=== PATIENT | male | born 1955 | race Caucasian/White ===

== ENCOUNTER → 2017-12-15 | Outpatient (CLI) | payer OTHER | LOC: LAB SHORT 07:27 → PLD 07:27 | DX: D48.5 Neoplasm of uncertain behavior of skin (principal) | CPT/HCPCS: 88305 ==

== ENCOUNTER 2022-02-10 21:52 | Emergency (ER) | payer OTHER ==
[~2022-02-10] VITALS: Ht 180.3 cm; Wt 99.8 kg
[2022-02-10] MEDS ORDERED: GABAPENTIN600 MG PO (22:53)
[2022-02-10] MEDS ORDERED: FUROSEMIDE20 MG PO (22:53)
[2022-02-10] MEDS ORDERED: ATOR40TA PO (22:53)
[2022-02-10] MEDS ORDERED: BASAGLAR K100 UNIT/8 SC (22:54)
[2022-02-10 23:17] LABS: BASOPHILS ABSOLUTE AUTO 0.05 K/mm3 (0.00-0.23); BASOPHILS PERCENT AUTO 0 % (0-2); EOSINOPHILS PERCENT AUTO 0 % (0-6); Hematocrit 50.5 % (37.0-53.0); IMMATURE GRAN ABSOLUTE AUTO 0.09 K/mm3 (0.00-0.10); IMMATURE GRAN PERCENT AUTO 1 % (0-1); LYMPHOCYTES ABSOLUTE AUTO 1.54 K/mm3 (0.84-5.20); LYMPHOCYTES PERCENT AUTO 10 % (21-46); MONOCYTES ABSOLUTE AUTO 0.99 K/mm3 (0.16-1.47); MONOCYTES PERCENT AUTO 6 % (4-13); Mean Corpuscular HGB 30.7 pg (26.0-34.0); Mean Corpuscular HGB Conc 33.7 g/dL (31.5-36.5); Mean Corpuscular Volume 91 fL (80-100); Mean Platelet Volume 10.2 fL (9.1-12.4); NEUTROPHILS ABSOLUTE AUTO 13.13 K/mm3 (1.96-9.15); NEUTROPHILS PERCENT AUTO 83 % (41-73); Platelet Count 404 K/mm3 (150-400); RDW Coefficient Variation 12.3 % (11.7-14.2); RDW Standard Deviation 41.9 fL (35.1-46.3); Red Blood Cell Count 5.53 M/mm3 (4.30-5.90)
[2022-02-10 23:34] LABS: Bun/Creatinine Ratio 33.6 (12.0-20.0); Creatinine, Blood 0.92 mg/dL (0.60-1.20); Potassium, Blood 3.8 mmol/L (3.5-5.5)
[2022-02-10 23:35] LABS: Albumin, Blood 3.2 g/dL (3.4-5.0); Albumin/Globulin Ratio 0.7 (0.8-1.8); Bilirubin, Total 0.5 mg/dL (0.1-1.0); Calcium, Blood 9.2 mg/dL (8.5-10.1); Globulin, Blood 4.6 g/dL (2.2-4.0); Total Protein, Blood 7.8 g/dL (6.4-8.2)
== END 2022-02-11 02:07 | disposition home or self-care (01) ==
LOC: ER 21:52
PROVIDERS: Physician Assistant
DX: S32.019A Unspecified fracture of first lumbar vertebra, initial encounter for closed fracture (principal); S32.029A Unspecified fracture of second lumbar vertebra, initial encounter for closed fracture; S20.211A Contusion of right front wall of thorax, initial encounter; W23.0XXA Caught, crushed, jammed, or pinched between moving objects, initial encounter; E11.9 Type 2 diabetes mellitus without complications; I10 Essential (primary) hypertension; D72.829 Elevated white blood cell count, unspecified
CPT/HCPCS: 36415; 71101; 71260; 74177; 80053; 83690; 85025; 93005; 93010; A9270; J7030; Q9967

== ENCOUNTER → 2023-02-25 | Outpatient (CLI) | payer MEDICARE, OTHER ==
[~2023-02-25] MED LIST: ATOR40TA PO; BASAGLAR K100 UNIT/8 SC; FUROSEMIDE20 MG PO; GABAPENTIN600 MG PO
== END | disposition home or self-care (01) ==
LOC: LAB SHORT 15:50 → PLD 15:50
DX: C44.311 Basal cell carcinoma of skin of nose (principal)
CPT/HCPCS: 88305

== ENCOUNTER 2023-05-20 15:08 | Inpatient (IN) | payer MEDICARE, OTHER ==
[~2023-05-20] VITALS: Ht 177.8 cm; Wt 84.2 kg
[2023-05-20] MEDS ORDERED: JARDIANCE10 MG PO (15:26)
[2023-05-20] MEDS ORDERED: PREGABALIN50 MG PO (15:26)
[2023-05-20] MEDS ORDERED: ATORVASTATIN CA20 MG PO (15:26)
[2023-05-20] MEDS ORDERED: METFORMIN HCL500 M2 PO (15:26)
[2023-05-20] MEDS ORDERED: LISI20 PO (15:26)
[2023-05-20] MEDS ORDERED: AMOCLA875 PO (16:09)
[2023-05-20 16:19] LABS: BASOPHILS ABSOLUTE AUTO 0.16 K/mm3 (0.00-0.23); BASOPHILS PERCENT AUTO 1 % (0-2); EOSINOPHILS ABSOLUTE AUTO 0.08 K/mm3 (0.00-0.68); EOSINOPHILS PERCENT AUTO 0 % (0-6); Hematocrit 49.2 % (37.0-53.0); IMMATURE GRAN ABSOLUTE AUTO 0.89 K/mm3 (0.00-0.10); IMMATURE GRAN PERCENT AUTO 3 % (0-1); LYMPHOCYTES ABSOLUTE AUTO 1.88 K/mm3 (0.84-5.20); LYMPHOCYTES PERCENT AUTO 5 % (21-46); MONOCYTES PERCENT AUTO 7 % (4-13); Mean Corpuscular HGB 31.4 pg (26.0-34.0); Mean Corpuscular HGB Conc 34.6 g/dL (31.5-36.5); Mean Corpuscular Volume 91 fL (80-100); Mean Platelet Volume 11.1 fL (9.1-12.4); NEUTROPHILS ABSOLUTE AUTO 29.41 K/mm3 (1.96-9.15); NEUTROPHILS PERCENT AUTO 84 % (41-73); Platelet Count 388 K/mm3 (150-400); RDW Coefficient Variation 11.9 % (11.7-14.2); RDW Standard Deviation 39.7 fL (35.1-46.3); Red Blood Cell Count 5.42 M/mm3 (4.30-5.90); White Blood Cell Count 35.02 K/mm3 (4.00-11.30)
[2023-05-20 17:10] LABS: Albumin, Blood 2.9 g/dL (3.4-5.0); Albumin/Globulin Ratio 0.6 (0.8-1.8); Bilirubin, Total 0.5 mg/dL (0.1-1.0); Bun/Creatinine Ratio 14.9 (12.0-20.0); Calcium, Blood 9.2 mg/dL (8.5-10.1); Creatinine, Blood 0.94 mg/dL (0.60-1.20); Globulin, Blood 4.5 g/dL (2.2-4.0); Total Protein, Blood 7.4 g/dL (6.4-8.2)
[2023-05-20 18:56] LABS: Magnesium, Blood 1.9 mg/dL (1.6-2.4)
[2023-05-20 18:57] LABS: Alanine Aminotransfer (ALT/SGP 19 U/L (12-78); Albumin, Blood 2.7 g/dL (3.4-5.0); Albumin/Globulin Ratio 0.6 (0.8-1.8); Alk Phos 101 U/L (50-136); Anion Gap 6 mmol/L (6-16); Aspartate Aminotrans (AST/SGOT 33 U/L (12-37); Bilirubin, Direct <0.1 mg/dL (0.0-0.3); Bilirubin, Indirect Unable to Calculate mg/dL (0.1-0.7); Bilirubin, Total 0.6 mg/dL (0.1-1.0); Blood Urea Nitrogen 14 mg/dL (8-24); Bun/Creatinine Ratio 17.2 (12.0-20.0); CO2, Blood 25 mmol/L (21-32); Calcium, Blood 8.8 mg/dL (8.5-10.1); Chloride, Blood 104 mmol/L (98-108); Creatinine, Blood 0.82 mg/dL (0.60-1.20); Globulin, Blood 4.3 g/dL (2.2-4.0); Glomerular Filtration Rate 97 (60-); Glucose, Blood 373 mg/dL (70-99); Phosphorus, Blood 3.4 mg/dL (2.5-4.9); Potassium, Blood 5.4 mmol/L (3.5-5.5); Sodium, Blood 135 mmol/L (136-145)
[2023-05-20 21:37] LABS: Source, Urine Clean Catch
[2023-05-20 21:43] LABS: Bilirubin, Urine Neg (Neg); Blood, Urine 1+ (Neg); Glucose Qualitative, Urine 4+ (Neg); Ketones, Urine 2+ (Neg); Leukocyte Esterase, Urine Neg (Neg); Nitrite, Urine Neg (Neg); Protein, Urine 1+ (Neg); Specific Gravity, Urine 1.015 (1.003-1.022); Urobilinogen, Urine NORM (Normal)
[2023-05-20 22:02] LABS: Appearance, Urine Clear (Clear); Color, Urine Yellow (P-Yellow)
[2023-05-20 22:03] LABS: Bacteria Rare /hpf; Red Blood Cells, Urine 0-2 /hpf (0-2); Squamous Epithelial Cells Rare /hpf (Few); White Blood Cells, Urine 0-2 /hpf (0-5)
[2023-05-21] VITALS (9 sets, daily range): BP systolic 127–216; BP diastolic 67–190
--- NOTE | 2023-05-21 00:13 | NUR ---
PT ARRIVED ON MEDICA FLOOR FROM ED- PT PLACED ON TELE AT THE TIME OF ARRIVAL RUNNING AFIB IN THE 150'S. DENIES CP AND SOB, IVF STARTED
--- NOTE | 2023-05-21 00:52 | NUR ---
IV METOPROLOL PUSH COMPLETED- CALLED TELE HR AFIB 124 AFTER PUSH COMPLETED. PT WAS AGGITATED WITH STAFF, DENYING CP OR SOB AT THE TIME OF PUSH, AFTER PUSH PT APPEARED TO BE MORE RELAXED AND VERBILIZED HE WAS FEELING LESS IRRITATED WITH STAFF.
--- NOTE | 2023-05-21 01:54 | NUR ---
CALLED NIGHT HOSPITALIST- PT HR AFIB 130-140'S SUSTAINED AGAIN. DROPPED TO 110-120'S WITH IV METOPROLOL BUT IS BACK UP AGAIN, RECIEVED ORDER FOR 10 MG IV CARDIZEM PUSH. CALLED PHARMACY
--- NOTE | 2023-05-21 02:42 | NUR ---
HR ELEVATED- PT HR IS STARTING TO INCREASE AGAIN. INITIALLY AFTER THE CARDIZEM IV PUSH HR WAS IN THE 105-117 RANGE. STARTING TO TOUCH UP INTO THE HIGH 120'S. CALLED TELE AND ASKED THEM TO CALL IF HR SUSTAINS OVER 130'S. PT IN BED SLEEPING AT THIS TIME. PHOTOS TAKEN OF WOUNDS, PT TOO TIRED TO SIGN THE PHOTO DOCUMENTATION FORM, VERBALIZED OK TO PHOTOGRAPH.
--- NOTE | 2023-05-21 02:59 | NUR ---
TELE CALLED- PT HR HAD BEEN SUSTAINING IN THE 130'S AND CREEPING UP TO THE 140'S. THEN IT DROPPED OFF WITH NO INTERVENTION. HR NOW TRENDING IN THE 90'S TO LOW 100'S.
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
--- NOTE | 2023-05-21 04:17 | NUR ---
SHIFT SUMMARY- PT HAS HAD ELEVATED PRESSURES AND HR SINCE ADMIT UNTIL HR RETURNED TO NSR. DIASTOLIC BP ELEVATED. PT ADMITTED THROUGH THE ED FOR CELLULITIS. PT IS A 1PA TO THE BEDSIDE TO USE THE URINAL. PT ALERT AND ORIENTED TO SELF, POOR HISTORIAN. ADMISSION COMPLETED. PHOTOS OF WOUNDS IN THE CHART. PT IN BED CALL LIGHT IN REACH, NO S&S OF DISTRESS AT THIS ITME.
[2023-05-21 07:32] LABS: BASOPHILS ABSOLUTE AUTO 0.18 K/mm3 (0.00-0.23); BASOPHILS PERCENT AUTO 1 % (0-2); EOSINOPHILS PERCENT AUTO 0 % (0-6); Hematocrit 45.6 % (37.0-53.0); Hemoglobin 15.8 g/dL (13.5-17.5); IMMATURE GRAN PERCENT AUTO 4 % (0-1); LYMPHOCYTES ABSOLUTE AUTO 1.86 K/mm3 (0.84-5.20); LYMPHOCYTES PERCENT AUTO 5 % (21-46); MONOCYTES ABSOLUTE AUTO 1.57 K/mm3 (0.16-1.47); MONOCYTES PERCENT AUTO 4 % (4-13); Mean Corpuscular HGB 31.3 pg (26.0-34.0); Mean Corpuscular HGB Conc 34.6 g/dL (31.5-36.5); Mean Corpuscular Volume 90 fL (80-100); Mean Platelet Volume 10.3 fL (9.1-12.4); NEUTROPHILS PERCENT AUTO 86 % (41-73); Platelet Count 372 K/mm3 (150-400); RDW Coefficient Variation 11.9 % (11.7-14.2); RDW Standard Deviation 39.5 fL (35.1-46.3); Red Blood Cell Count 5.05 M/mm3 (4.30-5.90); White Blood Cell Count 35.81 K/mm3 (4.00-11.30)
[2023-05-21 08:02] LABS: Albumin, Blood 2.4 g/dL (3.4-5.0); Albumin/Globulin Ratio 0.6 (0.8-1.8); Bilirubin, Total 0.4 mg/dL (0.1-1.0); Bun/Creatinine Ratio 21.8 (12.0-20.0); Calcium, Blood 8.7 mg/dL (8.5-10.1); Creatinine, Blood 0.69 mg/dL (0.60-1.20); Globulin, Blood 4.3 g/dL (2.2-4.0); Potassium, Blood 4.4 mmol/L (3.5-5.5); Total Protein, Blood 6.7 g/dL (6.4-8.2)
--- NOTE | 2023-05-21 17:26 | NUR ---
DAYSHIFT SUMMARY Patient alert & oriented x3. 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 No cardiac events this shift, telemetry in place NSR @ 91. IV ABX administred for cellulitis. High blood sugars, MD ordered medium sliding scale insulin. Educated patient on insulin, diabetes, & diabetic diet, explained how drinking soda will spike blood suagr levels. Patient verbalized understanding, but said he wanted soda anyways. Vitals stable, will continue plan of care.
--- NOTE | 2023-05-21 21:04 | NUR ---
COMMISSION SALES ASSOCIATE NOTE NURSE NOTIFIED OF PT WALKING SELF TO BATHROOM AND AMBULATING FINE. WAS TOLD AT SHIFT REPORT THAT A BED ALARM WOULD BE NEEDED. NURSE DECIDED THAT A BED ALARM WAS NOT NEEDED AT THIS TIME AND BED ALARM WAS KEPT OFF.
--- NOTE | 2023-05-21 22:09 | NUR ---
CALLED NIGHT HOSPITALIST. PT BG [phone]. NO NIGHT TIME COVERAGE ORDERED. PT ON IV STEROIDS. RECIEVED ORDER FOR 8 UNITS OF IV INSULIN X1.
--- NOTE | 2023-05-22 01:05 | NUR ---
PT HR FLIPPED INTO A FIB- HR 120-130'S CALLED NIGHT HOSPITALIST, RECIEVED AN ORDER FOR 10MG IV CARDIZIEM NOW
[2023-05-22 01:18] VITALS: BP 139/92
--- NOTE | 2023-05-22 01:27 | NUR ---
IV CARDIZIEM- PT HR WAS RUNNING 127-144 A FIB AT THE TIME OF THE IV PUSH. VSS AT THAT TIME.
--- NOTE | 2023-05-22 02:27 | NUR ---
CALLED NIGHT HOSPITALIST- PT HR AFIB 120'S-140'S. PT DENIES SOB OR CP AT THIS TIME. CALLED NIGHT HOSPITALIST RECIEVED ORDER FOR STST LAS CHEM PROFILE AND MAG LEVEL. ADDITIONAL DOSE OF IV CARDIZEM 10 MG. RECHECK IN ONE HOUR AFTER ADMINISTRATION.
[2023-05-22 02:38] VITALS: BP 133/94
--- NOTE | 2023-05-22 02:48 | NUR ---
IV CARDIZEM DOSE GIVEN- PT HR TACHY AFIB 130 AT THE TIME OF THE PUSH. PT O2 SATS 88% DESPITE REGULAR RESPIRATIONS. PLACED ON 2L VIA NC ANND SATS IMPROVED TO 94%. PT STATED AFTER THE PUSH THAT HE NEEDED TO "PEE." PT WAS ASSISTED TO THE BEDSIDE TO USE THE URINAL, STAFF EXPLAINED THE CONCERN WWITH AMBULATING RIGHT NOW. PT HR WENT UP TO 150'S-160'S WITH THE PT UP AT THE EOB.
[2023-05-22 03:03] LABS: Albumin, Blood 2.2 g/dL (3.4-5.0); Albumin/Globulin Ratio 0.5 (0.8-1.8); Bilirubin, Total 0.3 mg/dL (0.1-1.0); Bun/Creatinine Ratio 28.3 (12.0-20.0); Calcium, Blood 8.8 mg/dL (8.5-10.1); Creatinine, Blood 0.78 mg/dL (0.60-1.20); Globulin, Blood 4.6 g/dL (2.2-4.0); Magnesium, Blood 1.9 mg/dL (1.6-2.4); Potassium, Blood 4.4 mmol/L (3.5-5.5); Total Protein, Blood 6.8 g/dL (6.4-8.2)
--- NOTE | 2023-05-22 05:19 | NUR ---
SHIFT SUMMARY- PT HAS HAD ISSUES WITH HIS HR. HE FLIPPED INTO AFIB 2 IV DOSES OF CARDIZEM WERE ADMINISTERED. PT BG WAS ELEVATED IV INSULIN WAS GIVEN. BG WENT DOWN AND HAS BEEN GOING DOWN A LITTLE ALL NIGHT. PT HAD AN INCONTINENT STOOL AT THE START OF THE SHIFT,PT IN BED CALL LIGHT IN REACH NO CURRENT S&S OF DISTRESS NOTED.
--- NOTE | 2023-05-22 07:30 | NUR ---
ASSUMED CARE: PT RESTING QUIETLY IN BED. TELE STATES PT IS IN AFIB IN 120S. INSTRUCTED TELE TO TELL STAFF IF PT SUSTAINS 130S GIVEN INFECTION. ON RA, NO ACUTE NEEDS OR CONCERNS AT THIS TIME.
[2023-05-22 07:53] VITALS: BP 129/81
--- NOTE | 2023-05-22 09:30 | NUR ---
DR PIERRE CAME TO ROUND ON PT. AWARE OF EPISODES OF SVT AND AFIB RVR OVERNIGHT. STATES HR IN 120S IS ACCEPTABLE GIVEN INFECTION BUT BEYOND 130 PRN MEDS ARE AVAILABLE. MEMBERSHIP SALES ADVISOR AND TELE AWARE OF PERMISSIVE TACHYCARDIA
[2023-05-22 15:33] VITALS: BP 122/80
--- NOTE | 2023-05-22 18:50 | NUR ---
SHIFT SUMMARY: PT HAS BEEN ALTERNATING BETWEEN AFIB AND NSR ALL SHIFT. ANTICOAGULATION STARTED THIS AM. CARDIZEM PUSH AVAILABLE FOR HR GREATER THAN 130S BUT NOT NEEDED DUE TO NOT SUSTAINING ELEVATED HR. STATED SWELLING IMPROVED TODAY. VISITOR AT BEDSIDE THIS AFTERNOON. NO FURTHER NEEDS OR CONCERNS.
[2023-05-22 20:05] VITALS: BP 111/80
--- NOTE | 2023-05-23 04:35 | NUR ---
PT IS A&O4, SB TO THE BR, RA, VSS, NO COMPLAINTS OF PAIN OR DISCOMFORT OVERNIGHT OR ACUTE EVENTS, ECHO ORDERED FOR TODAY, CONTINUE POC
[2023-05-23 07:46] VITALS: BP 117/71
[2023-05-23 08:37] LABS: BASOPHILS ABSOLUTE AUTO 0.09 K/mm3 (0.00-0.23); BASOPHILS PERCENT AUTO 1 % (0-2); EOSINOPHILS ABSOLUTE AUTO 0.06 K/mm3 (0.00-0.68); EOSINOPHILS PERCENT AUTO 0 % (0-6); Hematocrit 45.5 % (37.0-53.0); Hemoglobin 15.7 g/dL (13.5-17.5); IMMATURE GRAN ABSOLUTE AUTO 0.24 K/mm3 (0.00-0.10); IMMATURE GRAN PERCENT AUTO 1 % (0-1); LYMPHOCYTES ABSOLUTE AUTO 3.98 K/mm3 (0.84-5.20); LYMPHOCYTES PERCENT AUTO 22 % (21-46); MONOCYTES ABSOLUTE AUTO 1.35 K/mm3 (0.16-1.47); MONOCYTES PERCENT AUTO 7 % (4-13); Mean Corpuscular HGB 31.4 pg (26.0-34.0); Mean Corpuscular HGB Conc 34.5 g/dL (31.5-36.5); Mean Corpuscular Volume 91 fL (80-100); Mean Platelet Volume 10.7 fL (9.1-12.4); NEUTROPHILS ABSOLUTE AUTO 12.62 K/mm3 (1.96-9.15); NEUTROPHILS PERCENT AUTO 69 % (41-73); Platelet Count 382 K/mm3 (150-400); RDW Coefficient Variation 12.2 % (11.7-14.2); RDW Standard Deviation 40.4 fL (35.1-46.3); White Blood Cell Count 18.34 K/mm3 (4.00-11.30)
[2023-05-23 09:09] LABS: Bun/Creatinine Ratio 25.4 (12.0-20.0); Calcium, Blood 8.6 mg/dL (8.5-10.1); Creatinine, Blood 0.79 mg/dL (0.60-1.20); Potassium, Blood 4.2 mmol/L (3.5-5.5)
--- NOTE | 2023-05-23 15:41 | NUR ---
Pt. is resting but responds when I enter the room. Pt. is pleasant, but unsettled at the infection that happened after surgery. Listen with empathy and a calming presence. Facilitate a life review and establish rapport. Pt. displays evidence of discomfort. Prayed for Pt. Pt. verbalized gratitude for the spiritual care visit.
[2023-05-23 16:14] VITALS: BP 141/80
--- NOTE | 2023-05-23 17:14 | NUR ---
SHIFT SUMMARY PT IS ALERT AND ORIENTED X4. BECAME UPSET WITH SOME STAFF OVER THIS SHIFT BUT APOLOGIZED FOR ENCOUNTERS. LEFT EYE IS SWOLLEN WITH DRAINAGE. WARM COMPRESS APPLIED TO LEFT SIDE OF FACE. PT DENIES PAIN AND SOB. INDEPENDENT IN THE ROOM. CBG TREATED PER EMAR. NO ACUTE CHANGES.
[2023-05-23 19:33] VITALS: BP 136/69
--- NOTE | 2023-05-24 05:21 | NUR ---
SHIFT SUMMARY PT IS A&O4, HAS BEEN INDEPENDENT IN THE ROOM THIS SHIFT, PT DID HAVE RUN OF AFIB RVR IN 150'S, CARDIZEM IV PUSH GIVEN X1 PER MAR, PT CONVERTED TO SR EARLY IN THE SHIFT, PRN PAIN MEDICATION GIVEN X1 PER MAR, RA, VSS, NO OTHER EVENTS OVERNIGHT, CONTINUE POC
[2023-05-24 06:00] LABS: BASOPHILS ABSOLUTE AUTO 0.12 K/mm3 (0.00-0.23); BASOPHILS PERCENT AUTO 1 % (0-2); EOSINOPHILS ABSOLUTE AUTO 0.16 K/mm3 (0.00-0.68); EOSINOPHILS PERCENT AUTO 1 % (0-6); Hematocrit 44.2 % (37.0-53.0); Hemoglobin 15.2 g/dL (13.5-17.5); IMMATURE GRAN ABSOLUTE AUTO 0.15 K/mm3 (0.00-0.10); IMMATURE GRAN PERCENT AUTO 1 % (0-1); LYMPHOCYTES ABSOLUTE AUTO 3.98 K/mm3 (0.84-5.20); LYMPHOCYTES PERCENT AUTO 27 % (21-46); MONOCYTES ABSOLUTE AUTO 1.25 K/mm3 (0.16-1.47); MONOCYTES PERCENT AUTO 9 % (4-13); Mean Corpuscular HGB 31.1 pg (26.0-34.0); Mean Corpuscular HGB Conc 34.4 g/dL (31.5-36.5); Mean Corpuscular Volume 90 fL (80-100); Mean Platelet Volume 10.9 fL (9.1-12.4); NEUTROPHILS ABSOLUTE AUTO 8.88 K/mm3 (1.96-9.15); NEUTROPHILS PERCENT AUTO 61 % (41-73); Platelet Count 390 K/mm3 (150-400); RDW Coefficient Variation 11.9 % (11.7-14.2); RDW Standard Deviation 39.8 fL (35.1-46.3); Red Blood Cell Count 4.89 M/mm3 (4.30-5.90); White Blood Cell Count 14.54 K/mm3 (4.00-11.30)
[2023-05-24 07:43] VITALS: BP 139/86
[2023-05-24] MEDS ORDERED: LEVFLO500 PO (12:17)
[2023-05-24] MEDS ORDERED: Acetaminophen650 M1 PO (12:17)
[2023-05-24] MEDS ORDERED: METO25ER PO (12:18)
[2023-05-24] MEDS ORDERED: VISBIOME 112.51 EACH PO (12:19)
[2023-05-24] MEDS ORDERED: XARELTO20 MG PO (12:21)
--- NOTE | 2023-05-24 12:58 | NUR ---
DISCHARGE PT DISCHARGED HOME WITH FRIEND. DISCHARGE INSTRUCTIONS DISCUSSED WITH PT. I EMPHASIZED THE IMPORTANCE OF FINISHING ANTIBOTICS PRESCRIBED AND FOLLOWING UP WITH [facility]. NO QUESTIONS OR CONCERNS AT THIS TIME
== END 2023-05-24 12:41 | disposition home or self-care (01) | DRG 862 ==
LOC: ER 15:08 → MEDS 23:22
PROVIDERS: Emergency Medicine; Internal Medicine; ADMIT Internal Medicine
DX: T81.44XA Sepsis following a procedure, initial encounter (principal); A41.9 Sepsis, unspecified organism; L03.211 Cellulitis of face; I10 Essential (primary) hypertension; E78.5 Hyperlipidemia, unspecified; F15.10 Other stimulant abuse, uncomplicated; I48.0 Paroxysmal atrial fibrillation; E11.40 Type 2 diabetes mellitus with diabetic neuropathy, unspecified; E11.65 Type 2 diabetes mellitus with hyperglycemia; E83.42 Hypomagnesemia; Z79.899 Other long term (current) drug therapy; Z79.4 Long term (current) use of insulin; Z85.22 Personal history of malignant neoplasm of nasal cavities, middle ear, and accessory sinuses
CPT/HCPCS: 36415; 70487; 71046; 80048; 80053; 81001; 82248; 82947; 83605; 83735; 84100; 84145; 85025; 85651; 87040; 93005; 93010; 93306; 96361; 96365-59; 96366-59; 96367-59; 99285-25; A9270; J0295; J0690; J0736; J1815; J2543; J2930; J7030; J7050; Q9967

== ENCOUNTER 2023-06-20 12:20 | Emergency (ER) | payer MEDICARE, OTHER ==
[~2023-06-20] VITALS: Ht 177.8 cm; Wt 79.4 kg
[~2023-06-20 12:20] MED LIST changes: +AMOCLA875 PO; +ATORVASTATIN CA20 MG PO; +Acetaminophen650 M1 PO; +JARDIANCE10 MG PO; +LEVFLO500 PO; +LISI20 PO; +METFORMIN HCL500 M2 PO; +METO25ER PO; +PREGABALIN50 MG PO; +VISBIOME 112.51 EACH PO; +XARELTO20 MG PO
[2023-06-20 12:38] VITALS: BP 97/56
[2023-06-20 13:22] LABS: BASOPHILS ABSOLUTE AUTO 0.06 K/mm3 (0.00-0.23); BASOPHILS PERCENT AUTO 0 % (0-2); EOSINOPHILS ABSOLUTE AUTO 0.04 K/mm3 (0.00-0.68); EOSINOPHILS PERCENT AUTO 0 % (0-6); Hematocrit 39.2 % (37.0-53.0); Hemoglobin 13.2 g/dL (13.5-17.5); IMMATURE GRAN ABSOLUTE AUTO 0.06 K/mm3 (0.00-0.10); IMMATURE GRAN PERCENT AUTO 0 % (0-1); LYMPHOCYTES ABSOLUTE AUTO 2.89 K/mm3 (0.84-5.20); LYMPHOCYTES PERCENT AUTO 18 % (21-46); MONOCYTES ABSOLUTE AUTO 1.16 K/mm3 (0.16-1.47); MONOCYTES PERCENT AUTO 7 % (4-13); Mean Corpuscular HGB 31.1 pg (26.0-34.0); Mean Corpuscular HGB Conc 33.7 g/dL (31.5-36.5); Mean Corpuscular Volume 92 fL (80-100); Mean Platelet Volume 10.7 fL (9.1-12.4); NEUTROPHILS ABSOLUTE AUTO 11.99 K/mm3 (1.96-9.15); NEUTROPHILS PERCENT AUTO 74 % (41-73); Platelet Count 265 K/mm3 (150-400); RDW Coefficient Variation 12.6 % (11.7-14.2); RDW Standard Deviation 42.8 fL (35.1-46.3); Red Blood Cell Count 4.25 M/mm3 (4.30-5.90)
[2023-06-20 13:45] LABS: Albumin, Blood 2.7 g/dL (3.4-5.0); Albumin/Globulin Ratio 0.6 (0.8-1.8); Bilirubin, Total 0.4 mg/dL (0.1-1.0); Bun/Creatinine Ratio 20.6 (12.0-20.0); Creatinine, Blood 1.02 mg/dL (0.60-1.20); Globulin, Blood 4.4 g/dL (2.2-4.0); Potassium, Blood 4.3 mmol/L (3.5-5.5); Total Protein, Blood 7.1 g/dL (6.4-8.2)
[2023-06-20] MEDS ORDERED: CEPH500 PO (15:35)
== END 2023-06-20 15:50 | disposition home or self-care (01) ==
LOC: ER 12:20
PROVIDERS: Student in an Organized Health Care Education/Training Program
DX: L03.115 Cellulitis of right lower limb (principal); Z79.899 Other long term (current) drug therapy; Z79.4 Long term (current) use of insulin; E11.9 Type 2 diabetes mellitus without complications; I10 Essential (primary) hypertension
CPT/HCPCS: 80053; 85025; 99283; A9270

== ENCOUNTER → 2024-10-14 | Outpatient (CLI) | payer MEDICARE, OTHER ==
[~2024-10-14] MED LIST changes: +CEPH500 PO
[2024-10-14 14:42] LABS: BASOPHILS PERCENT AUTO 1 % (0-2); EOSINOPHILS ABSOLUTE AUTO 0.31 K/mm3 (0.00-0.68); EOSINOPHILS PERCENT AUTO 4 % (0-6); Hemoglobin 15.3 g/dL (13.5-17.5); IMMATURE GRAN ABSOLUTE AUTO 0.03 K/mm3 (0.00-0.10); IMMATURE GRAN PERCENT AUTO 0 % (0-1); LYMPHOCYTES ABSOLUTE AUTO 3.18 K/mm3 (0.84-5.20); LYMPHOCYTES PERCENT AUTO 36 % (21-46); MONOCYTES ABSOLUTE AUTO 0.72 K/mm3 (0.16-1.47); MONOCYTES PERCENT AUTO 8 % (4-13); Mean Corpuscular HGB 30.6 pg (26.0-34.0); Mean Corpuscular HGB Conc 34.8 g/dL (31.5-36.5); Mean Corpuscular Volume 88 fL (80-100); NEUTROPHILS ABSOLUTE AUTO 4.62 K/mm3 (1.96-9.15); NEUTROPHILS PERCENT AUTO 52 % (41-73); NRBC ABSOLUTE 0.03 K/mm3 (0.00-0.02); NRBC Auto 0.3 /100 WBC (0.0-0.2); Platelet Count 148 K/mm3 (150-400); RDW Coefficient Variation 13.1 % (11.7-14.2); RDW Standard Deviation 41.4 fL (35.1-46.3); White Blood Cell Count 8.96 K/mm3 (4.00-11.30)
[2024-10-14 14:45] LABS: Very Low Density Lipoprot Chol 51 mg/dL (6-32)
[2024-10-14 14:54] LABS: Alanine Aminotransfer (ALT/SGP 23 U/L (12-78); Albumin, Blood 3.1 g/dL (3.4-5.0); Albumin/Globulin Ratio 0.7 (0.8-1.8); Alk Phos 230 U/L (50-136); Anion Gap 10 mmol/L (3-11); Aspartate Aminotrans (AST/SGOT 15 U/L (12-37); Bilirubin, Total 0.4 mg/dL (0.1-1.0); Blood Urea Nitrogen 27 mg/dL (8-24); Bun/Creatinine Ratio 35.3 (12.0-20.0); CHOL/HDL RATIO 4.7; CO2, Blood 28 mmol/L (21-32); Calcium, Blood 9.1 mg/dL (8.5-10.1); Chloride, Blood 98 mmol/L (98-108); Cholesterol 193 mg/dL (50-200); Creatinine, Blood 0.76 mg/dL (0.60-1.20); Globulin, Blood 4.6 g/dL (2.2-4.0); Glomerular Filtration Rate 99 (60-); Glucose, Blood 498 mg/dL (70-99); HDL Cholesterol 41 mg/dL (>39); LDL/HDL RATIO 2.5; Low Density Lipoprotein Chol 101 mg/dL (0-110); Potassium, Blood 4.2 mmol/L (3.5-5.5); Sodium, Blood 132 mmol/L (136-145); Total Protein, Blood 7.7 g/dL (6.4-8.2); Triglycerides 256 mg/dL (30-160)
== END ==
LOC: LAB 12:35 → LAB SHORT 12:35
PROVIDERS: Physician Assistant
DX: Z51.81 Encounter for therapeutic drug level monitoring (principal); Z79.899 Other long term (current) drug therapy
CPT/HCPCS: 80053; 80061; 82306; 83036; 84443; 85025

== ENCOUNTER → 2025-04-25 | Outpatient (CLI) | payer MEDICARE ==
[2025-04-25 17:39] LABS: Alanine Aminotransfer (ALT/SGP 20 U/L (12-78); Albumin, Blood 3.2 g/dL (3.4-5.0); Albumin/Globulin Ratio 0.7 (0.8-1.8); Anion Gap 7 mmol/L (3-11); Aspartate Aminotrans (AST/SGOT 11 U/L (12-37); Bilirubin, Total 0.6 mg/dL (0.1-1.0); Blood Urea Nitrogen 32 mg/dL (8-24); CHOL/HDL RATIO 4.8; CO2, Blood 28 mmol/L (21-32); Calcium, Blood 9.1 mg/dL (8.5-10.1); Chloride, Blood 104 mmol/L (98-108); Cholesterol 196 mg/dL (50-200); Creatinine, Blood 1.01 mg/dL (0.60-1.20); Globulin, Blood 4.4 g/dL (2.2-4.0); Glucose, Blood 149 mg/dL (70-99); HDL Cholesterol 41 mg/dL (>39); LDL/HDL RATIO 3.3; Low Density Lipoprotein Chol 136 mg/dL (0-110); Magnesium, Blood 2.2 mg/dL (1.6-2.4); Potassium, Blood 3.8 mmol/L (3.5-5.5); Sodium, Blood 135 mmol/L (136-145); Total Protein, Blood 7.6 g/dL (6.4-8.2); Triglycerides 95 mg/dL (30-160); Very Low Density Lipoprot Chol 19 mg/dL (6-32)
[2025-04-25 18:13] LABS: BASOPHILS ABSOLUTE AUTO 0.08 K/mm3 (0.00-0.23); BASOPHILS PERCENT AUTO 1 % (0-2); EOSINOPHILS ABSOLUTE AUTO 0.26 K/mm3 (0.00-0.68); EOSINOPHILS PERCENT AUTO 2 % (0-6); Hematocrit 46.5 % (37.0-53.0); Hemoglobin 15.7 g/dL (13.5-17.5); IMMATURE GRAN ABSOLUTE AUTO 0.03 K/mm3 (0.00-0.10); IMMATURE GRAN PERCENT AUTO 0 % (0-1); LYMPHOCYTES ABSOLUTE AUTO 3.86 K/mm3 (0.84-5.20); LYMPHOCYTES PERCENT AUTO 31 % (21-46); MONOCYTES ABSOLUTE AUTO 1.09 K/mm3 (0.16-1.47); MONOCYTES PERCENT AUTO 9 % (4-13); Mean Corpuscular HGB Conc 33.8 g/dL (31.5-36.5); Mean Corpuscular Volume 91 fL (80-100); NEUTROPHILS ABSOLUTE AUTO 6.99 K/mm3 (1.96-9.15); NEUTROPHILS PERCENT AUTO 57 % (41-73); NRBC ABSOLUTE 0.00 K/mm3 (0.00-0.02); NRBC Auto 0.0 /100 WBC (0.0-0.2); Platelet Count 101 K/mm3 (150-400); RDW Coefficient Variation 12.8 % (11.7-14.2); RDW Standard Deviation 42.5 fL (35.1-46.3)
== END ==
LOC: LAB SHORT 16:13 → LAB 16:13
DX: E11.65 Type 2 diabetes mellitus with hyperglycemia (principal)
CPT/HCPCS: 80053; 80061; 83036; 83735; 85025

== ENCOUNTER → 2025-07-04 | Outpatient (CLI) | payer MEDICARE ==
[2025-07-04 19:59] LABS: Creatinine, Urine Random 61.2 mg/dL (27.00-270.00); Microalb/Creat Ratio UR, Rand 31.372 mg/g (0.000-30.000); Microalbumin, Random Urine 19.2 mg/L (0.000-20.000)
== END ==
LOC: LAB 17:49 → LAB SHORT 17:49
DX: E11.65 Type 2 diabetes mellitus with hyperglycemia (principal)
CPT/HCPCS: 82043; 82570

== ENCOUNTER 2025-07-19 01:37 | Day surgery (SDC) | payer MEDICARE | END 2025-07-19 22:51 | disposition home or self-care (01) | LOC: WOUND 01:37 | DX: E11.622 Type 2 diabetes mellitus with other skin ulcer (principal); I87.2 Venous insufficiency (chronic) (peripheral); L97.812 Non-pressure chronic ulcer of other part of right lower leg with fat layer exposed; E11.40 Type 2 diabetes mellitus with diabetic neuropathy, unspecified; I10 Essential (primary) hypertension | CPT/HCPCS: A6213; G0463 ==

== ENCOUNTER 2025-07-26 00:58 | Day surgery (SDC) | payer MEDICARE | END 2025-07-26 23:00 | disposition home or self-care (01) | LOC: WOUND 00:58 | DX: E11.622 Type 2 diabetes mellitus with other skin ulcer (principal); L97.812 Non-pressure chronic ulcer of other part of right lower leg with fat layer exposed; I87.2 Venous insufficiency (chronic) (peripheral) | CPT/HCPCS: A6213; G0463 ==

== ENCOUNTER 2025-08-02 00:34 | Day surgery (SDC) | payer MEDICARE | END 2025-08-02 22:53 | disposition home or self-care (01) | LOC: WOUND 00:34 | DX: E11.622 Type 2 diabetes mellitus with other skin ulcer (principal); L97.812 Non-pressure chronic ulcer of other part of right lower leg with fat layer exposed; E11.40 Type 2 diabetes mellitus with diabetic neuropathy, unspecified; I87.2 Venous insufficiency (chronic) (peripheral); I10 Essential (primary) hypertension | CPT/HCPCS: A6213; G0463 ==

== ENCOUNTER 2025-08-23 18:13 | Observation (INO) | payer MEDICARE ==
[~2025-08-23] VITALS: Ht 170.2 cm; Wt 75.4 kg
[~2025-08-23 18:13] MED LIST changes: -LISI20 PO; +Prinivil10 MG PO
[2025-08-23 19:26] LABS: BASOPHILS ABSOLUTE AUTO 0.07 K/mm3 (0.00-0.23); BASOPHILS PERCENT AUTO 0 % (0-2); EOSINOPHILS ABSOLUTE AUTO 0.13 K/mm3 (0.00-0.68); EOSINOPHILS PERCENT AUTO 1 % (0-6); Hematocrit 50.8 % (37.0-53.0); Hemoglobin 16.8 g/dL (13.5-17.5); IMMATURE GRAN ABSOLUTE AUTO 0.05 K/mm3 (0.00-0.10); IMMATURE GRAN PERCENT AUTO 0 % (0-1); LYMPHOCYTES ABSOLUTE AUTO 2.47 K/mm3 (0.84-5.20); LYMPHOCYTES PERCENT AUTO 15 % (21-46); MONOCYTES ABSOLUTE AUTO 1.52 K/mm3 (0.16-1.47); MONOCYTES PERCENT AUTO 9 % (4-13); Mean Corpuscular HGB Conc 33.1 g/dL (31.5-36.5); Mean Corpuscular Volume 92 fL (80-100); NEUTROPHILS ABSOLUTE AUTO 12.70 K/mm3 (1.96-9.15); NEUTROPHILS PERCENT AUTO 75 % (41-73); NRBC ABSOLUTE 0.00 K/mm3 (0.00-0.02); NRBC Auto 0.0 /100 WBC (0.0-0.2); Platelet Count 400 K/mm3 (150-400); RDW Coefficient Variation 13.1 % (11.7-14.2); RDW Standard Deviation 44.5 fL (35.1-46.3)
[2025-08-23] MEDS ORDERED: KLOR-CON 1010 ME9 PO (19:36)
[2025-08-23] MEDS ORDERED: CHLO25B PO (19:36)
[2025-08-23] MEDS ORDERED: Metoprolol Tartrate 1 MG/ML 5 ML VIAL IV ONE (20:00)
[2025-08-23] MEDS ORDERED: NS 1,000 ML IV SCH ×2 (20:00→23:00)
[2025-08-23 20:43] LABS: Alanine Aminotransfer (ALT/SGP 16.0 U/L (12-78); Albumin, Blood 3.6 g/dL (3.4-5.0); Albumin/Globulin Ratio 0.9 (0.8-1.8); Anion Gap 13.0 mmol/L (3-11); Aspartate Aminotrans (AST/SGOT 15.0 U/L (12-37); Bilirubin, Total 0.5 mg/dL (0.1-1.0); Blood Urea Nitrogen 48.0 mg/dL (8-24); CO2, Blood 20.0 mmol/L (21-32); Calcium, Blood 9.0 mg/dL (8.5-10.1); Chloride, Blood 106.0 mmol/L (98-108); Creatinine, Blood 2.01 mg/dL (0.60-1.20); Globulin, Blood 4.0 g/dL (2.2-4.0); Glucose, Blood 208.0 mg/dL (70-99); Potassium, Blood 3.9 mmol/L (3.5-5.5); Sodium, Blood 135.0 mmol/L (136-145); Total Protein, Blood 7.6 g/dL (6.4-8.2)
[2025-08-23] MEDS ORDERED: Metoprolol Tartrate 1 MG/ML 5 ML VIAL IV PRN (20:45)
[2025-08-23 21:10] LABS: Prothrombin Time Results 11.7 Sec (9.7-11.5)
[2025-08-23] MEDS ORDERED: SYNJARDY XR 251 EAC1 PO (22:49)
[2025-08-23] MEDS ORDERED: FLU VACC TS2025(65UP)/MF59C/PF 45 MCG/0.5 ML SYRINGE IM SCH (22:55)
[2025-08-23] MEDS ORDERED: Ondansetron HCl 2 MG / ML 2ML Vial IV PRN (22:55)
[2025-08-23] MEDS ORDERED: Enoxaparin 40 MG/0.4 ML SYR SC SCH (23:00)
[2025-08-23 23:20] LABS: Magnesium, Blood 1.7 mg/dL (1.6-2.4); Phosphorus, Blood 3.7 mg/dL (2.5-4.9)
[2025-08-23 23:40] VITALS: BP 96/72
[2025-08-24] VITALS (7 sets, daily range): BP systolic 85–129; BP diastolic 60–81
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
[2025-08-24 03:39] LABS: BASOPHILS ABSOLUTE AUTO 0.07 K/mm3 (0.00-0.23); BASOPHILS PERCENT AUTO 1 % (0-2); EOSINOPHILS ABSOLUTE AUTO 0.33 K/mm3 (0.00-0.68); EOSINOPHILS PERCENT AUTO 3 % (0-6); Hematocrit 41.4 % (37.0-53.0); Hemoglobin 13.9 g/dL (13.5-17.5); IMMATURE GRAN ABSOLUTE AUTO 0.04 K/mm3 (0.00-0.10); IMMATURE GRAN PERCENT AUTO 0 % (0-1); LYMPHOCYTES ABSOLUTE AUTO 3.72 K/mm3 (0.84-5.20); LYMPHOCYTES PERCENT AUTO 31 % (21-46); MONOCYTES ABSOLUTE AUTO 1.14 K/mm3 (0.16-1.47); MONOCYTES PERCENT AUTO 10 % (4-13); Mean Corpuscular HGB Conc 33.6 g/dL (31.5-36.5); Mean Corpuscular Volume 89 fL (80-100); NEUTROPHILS ABSOLUTE AUTO 6.65 K/mm3 (1.96-9.15); NEUTROPHILS PERCENT AUTO 56 % (41-73); NRBC ABSOLUTE 0.00 K/mm3 (0.00-0.02); NRBC Auto 0.0 /100 WBC (0.0-0.2); Platelet Count 340 K/mm3 (150-400); RDW Coefficient Variation 13.2 % (11.7-14.2); RDW Standard Deviation 43.3 fL (35.1-46.3)
[2025-08-24 04:10] LABS: Campylobacter Sp Not Detected (NOT DETECT)
[2025-08-24 04:11] LABS: E. Coli O157 Not Detected (NOT DETECT); Enteroaggregative E. coli-EAEC Not Detected (NOT DETECT); Enteropathogenic E. coli-EPEC Not Detected (NOT DETECT); Enterotoxigenic E. coli-ETEC Not Detected (NOT DETECT); Salmonella Sp Not Detected (NOT DETECT); Shiga Toxin-prod E. coli-STEC Not Detected (NOT DETECT); Shigella/Enteroin E. coli-EIEC Not Detected (NOT DETECT); Vibrio Sp Not Detected (NOT DETECT)
[2025-08-24] MEDS ORDERED: NS 500 ML IV ONE (04:20)
[2025-08-24 04:23] LABS: Alanine Aminotransfer (ALT/SGP 13.0 U/L (12-78); Albumin, Blood 2.8 g/dL (3.4-5.0); Albumin/Globulin Ratio 0.8 (0.8-1.8); Anion Gap 9.0 mmol/L (3-11); Aspartate Aminotrans (AST/SGOT 13.0 U/L (12-37); Bilirubin, Total 0.6 mg/dL (0.1-1.0); Blood Urea Nitrogen 46.0 mg/dL (8-24); CO2, Blood 21.0 mmol/L (21-32); Calcium, Blood 8.2 mg/dL (8.5-10.1); Chloride, Blood 112.0 mmol/L (98-108); Creatinine, Blood 1.63 mg/dL (0.60-1.20); Globulin, Blood 3.3 g/dL (2.2-4.0); Glucose, Blood 161.0 mg/dL (70-99); Potassium, Blood 3.6 mmol/L (3.5-5.5); Sodium, Blood 138.0 mmol/L (136-145); Total Protein, Blood 6.1 g/dL (6.4-8.2)
--- NOTE | 2025-08-24 04:54 | NUR ---
SHIFT SUMMARY SEE PREVIOUS NOTE MD PENN TO BEDSIDE. REDNESS TO RLE MARKED WITH PEN. BP SOFT WITH SBP 90S ORDER FOR X1 500ML NS BOLUS. INFUSING PER EMAR. PT REMAINS IN SR. NO OTHER ACUTE CHANGES SINCE PREVIOUS NOTE. BED IN LOWEST POSITION AND CALL LIGHT WITHIN REACH. THIS RN WILL REPORT TO ONCOMING DAYSHIFT RN.
[2025-08-24] MEDS ORDERED: Insulin Human Lispro 100 Units/ML 3ML Syringe SC SCH ×2 (07:30)
--- NOTE | 2025-08-24 18:27 | NUR ---
SHIFT SUMMARY/DISCHARGE PATIENT AOX4 T/O SHIFT. SBP 80'S-110'S STABLE. PROVIDER AWARE. MEDICATED PER EMAR. HR NSR 90'S. PREVIOUS AFIB RHYTHM CONVERTED TO NSR BEFORE SHIFT. MEDICATED PER EMAR. PROVIDER AWARE. O2 SATS >93% ON ROOM AIR. SHIMA IS A SBA W FWW AROUND ROOM AND USES URINAL BEDSIDE. DENIES CHEST PAIN/PRESSURE/SOB AT THIS TIME. DISCHARGE ORDERS PLACED. EDUCATION ABOUT DISEASE PROCESS, MEDICATIONS AND DISCHARGE INSTRUCTIONS PROVIDED. PATIENT VERBALIZED UNDERSTANDING. VITALS OBTAINED BEFORE DISCHARGE. PATIENT LEFT IN WHEELCHAIR BY AIDE WITH HIS RIDE PRESENT.
== END 2025-08-24 16:35 | disposition home health service (06) ==
LOC: ER 18:13 → PCU 18:14
PROVIDERS: Physician Assistant; ADMIT Internal Medicine
DX: I48.91 Unspecified atrial fibrillation (principal); K59.00 Constipation, unspecified; R19.7 Diarrhea, unspecified; N17.9 Acute kidney failure, unspecified; E11.65 Type 2 diabetes mellitus with hyperglycemia; R60.0 Localized edema; E78.5 Hyperlipidemia, unspecified; I10 Essential (primary) hypertension; Z79.01 Long term (current) use of anticoagulants; Z79.4 Long term (current) use of insulin; Z79.84 Long term (current) use of oral hypoglycemic drugs; Z79.899 Other long term (current) drug therapy; W19.XXXA Unspecified fall, initial encounter; Y92.029 Unspecified place in mobile home as the place of occurrence of the external cause
CPT/HCPCS: 36415; 71045; 76770; 80053; 82947; 83605; 83735; 83880; 84100; 85025; 85610; 85730; 87507; 93005; 93010; 93306; 96361; 96365; 96366; 96372-59; 96375; 97116; 97161; 99285-25; A9270; G0378; J1650; J7030; J7040